=== PATIENT | female | born 1955 | race Caucasian/White ===

== ENCOUNTER 2019-05-01 14:19 | Outpatient (REF) | payer BC, SELFPAY ==
[2019-05-01 19:16] LABS: ALT 52 U/L (14-59); AST 29 U/L (15-37); Albumin 3.9 g/dL (3.4-5.0); Alkaline Phosphatase 54 U/L (46-116); Anion Gap 6.5 mmol/L (3-11); BUN 16 mg/dL (7-18); Bilirubin, Total 0.8 mg/dL (0.2-1.0); CO2 29.5 mmol/L (21.0-32.0); CREATININE 0.97 mg/dL (0.55-1.02); Calcium 9.1 mg/dL (8.5-10.1); Calculated LDL 151 mg/dL; Chloride 106 mmol/L (98-107); Cholesterol 272 mg/dL (50-200); Estimated GFR 58.38 (mL/min/1.73m2); Glucose 85 mg/dL (70-100); HDL Cholesterol 105 mg/dL (40-60); Potassium 4.8 mmol/L (3.5-5.1); Sodium 142 mmol/L (136-145); Total Protein 7.1 g/dL (6.4-8.2); Triglyceride 81 mg/dL (30-150)
== END 2019-05-01 14:39 ==
LOC: NCHCN 14:19
PROVIDERS: PCP Family Medicine; Visit Provider Family Medicine
DX: Z00.00 Encounter for general adult medical examination without abnormal findings (principal); R79.89 Other specified abnormal findings of blood chemistry
CPT/HCPCS: 80053; 80061

== ENCOUNTER 2020-03-31 14:41 | Outpatient (REF) | payer BC, SELFPAY ==
[2020-04-04 04:30] LABS: Patient Race White; SARS-CoV-2 RNA Undetected (Undetected); SARS-CoV-2 Specimen Source Nasal
== END 2020-03-31 15:01 ==
LOC: NCHCN 14:41
PROVIDERS: PCP Family Medicine; Visit Provider Family Medicine
DX: M79.18 Myalgia, other site (principal)
CPT/HCPCS: U0003

== ENCOUNTER 2020-04-07 16:26 | Outpatient (REF) | payer BC, SELFPAY ==
[2020-04-07 21:09] LABS: Abs Immature Grans 0.01 10^3/uL (0.0-0.06); Absolute Basophil Count 0.03 10^3/uL (0.0-0.2); Absolute Eosinophil Count 0.18 10^3/uL (0.0-0.7); Absolute Lymphocyte Count 1.83 10^3/uL (1.2-3.4); Absolute Neutrophil Count 3.25 10^3/uL (1.2-6.7); Basophils % 0.5; Eosinophils % 3.2; HCT 41.8 % (36.0-46.0); Immature Grans % 0.2; Lymphocytes % 32.1; MCH 31.5 pg (27.0-33.0); MCHC 33.5 % (32.0-36.0); MCV 94.1 fL (80-95); MPV 11.5 fL (8.0-11.0); Nucleated RBC 0 %; Platelet Count 217 10^3/uL (130-400); RBC 4.44 10^6/uL (3.93-5.22); RDW 12.3 % (11.7-14.6); RDW-SD 42.8 fL
[2020-04-07 21:54] LABS: Vitamin D 25 Total 43.1 ng/ml (30-100)
[2020-04-07 21:55] LABS: ALT 55 U/L (14-59); AST 34 U/L (15-37); Albumin 3.9 g/dL (3.4-5.0); Alkaline Phosphatase 53 U/L (46-116); Anion Gap 7.1 mmol/L (3-11); BUN 20 mg/dL (7-18); Bilirubin, Total 0.8 mg/dL (0.2-1.0); CO2 25.9 mmol/L (21.0-32.0); CREATININE 0.81 mg/dL (0.55-1.02); Calcium 8.7 mg/dL (8.5-10.1); Chloride 105 mmol/L (98-107); Glucose 113 mg/dL (74-106); Potassium 4.4 mmol/L (3.5-5.1); Sodium 138 mmol/L (136-145); TSH (W/Ref FT4) 1.89 uIU/mL (0.36-3.74); Vitamin B12 525 pg/mL (193-986)
[2020-04-11 10:04] LABS: Lyme Ab w Rflx to Lyme Confirm Negative (Negative)
== END 2020-04-07 16:46 ==
LOC: NCHCN 16:26
PROVIDERS: PCP Family Medicine; Visit Provider Family Medicine
DX: M54.2 Cervicalgia (principal); R53.83 Other fatigue; M25.50 Pain in unspecified joint; R79.89 Other specified abnormal findings of blood chemistry
CPT/HCPCS: 80053; 82306; 82607; 84443; 85025; 86618

== ENCOUNTER 2021-02-06 18:58 | Outpatient (REF) | payer BC, SELFPAY ==
[2021-02-06 21:16] LABS: HCT 43.7 % (36.0-46.0); HGB 14.2 g/dL (11.2-15.7); MCH 30.7 pg (27.0-33.0); MCHC 32.5 % (32.0-36.0); MCV 94.6 fL (80-95); MPV 11.5 fL (8.0-11.0); Platelet Count 204 10^3/uL (130-400); RBC 4.62 10^6/uL (3.93-5.22); RDW 13.4 % (11.7-14.6); RDW-SD 46.5 fL
[2021-02-06 21:38] LABS: Hemoglobin A1C 5.2 % (<5.7)
[2021-02-06 22:02] LABS: ALT 37 U/L (14-59); AST 27 U/L (15-37); Alkaline Phosphatase 53 U/L (46-116); Anion Gap 8.7 mmol/L (3-11); BUN 14 mg/dL (7-18); CO2 27.3 mmol/L (21.0-32.0); CREATININE 0.8 mg/dL (0.55-1.02); Calcium 8.9 mg/dL (8.5-10.1); Chloride 106 mmol/L (98-107); Glucose 90 mg/dL (74-106); Potassium 4.6 mmol/L (3.5-5.1); Sodium 142 mmol/L (136-145); TSH (W/Ref FT4) 1.07 uIU/mL (0.36-3.74); Total Protein 6.9 g/dL (6.4-8.2); Vitamin B12 444 pg/mL (193-986)
== END 2021-02-06 18:59 | disposition home or self-care (01) ==
LOC: NCHCN 18:58
PROVIDERS: PCP Family Medicine; Visit Provider Nurse Practitioner Family
DX: R20.0 Anesthesia of skin (principal); R20.2 Paresthesia of skin
CPT/HCPCS: 80053; 85027; 82607; 82746; 83036; 84443

== ENCOUNTER 2021-10-19 14:12 | Outpatient (REF) | payer BC, SELFPAY ==
--- NOTE | 2021-10-19 11:10 | PAPFT_PTH ---
PATIENT: Linda Madden LOC: [facility]#:[id number] AGE/SX: 66/F ROOM: RE10/19/[address]: Frandy Sifuentes : 1955 BED: DIS: 10/19/2021 SPEC #: [id number] RECD: 10/20/21 12:32 STATUS: [email or web address] REQ #: [id number] ELMER: 10/19/21 11:[address]: Frandy Sifuentes DEPT: [facility] Cytology RECD BY: Maria Del Carmen Abebe Tissues: 1 - CX/ENDOCX FOR PAP SMEARS Procedures: PAP THIN PREP/[facility] Screening HPV DNA PROBE Comments: [id number]
== END 2021-10-19 14:13 | disposition home or self-care (01) ==
LOC: NCHCN 14:12
PROVIDERS: PCP Family Medicine; Visit Provider Family Medicine
DX: Z12.4 Encounter for screening for malignant neoplasm of cervix (principal); Z11.51 Encounter for screening for human papillomavirus (HPV)
CPT/HCPCS: 88142; 87624

== ENCOUNTER 2022-01-12 16:53 | Outpatient (REF) | payer BC, SELFPAY ==
[2022-01-12 20:35] LABS: HCT 41.8 % (36.0-46.0); HGB 13.9 g/dL (11.2-15.7); MCH 29.9 pg (27.0-33.0); MCHC 33.3 % (32.0-36.0); MCV 90 fL (80-95); RBC 4.65 10^6/uL (3.93-5.22); RDW 13.2 % (11.7-14.6); RDW-SD 43.8 fL; WBC 2.31 10^3/uL (4.4-10.8)
[2022-01-12 21:04] LABS: Absolute Neutrophil Count 1.09 10^3/uL (1.2-6.7); Bands % 2
[2022-01-12 21:05] LABS: Absolute Basophil Count 0.02 10^3/uL (0.0-0.2); Absolute Monocyte Count 0.28 10^3/uL (0.1-0.8); Atypical Lymphocytes % 2; Metamyelocytes % 1; Platelet Count 89 10^3/uL (130-400)
[2022-01-12 21:06] LABS: Diff Comment Manual Differential; RBC Morphology Normal
[2022-01-14 14:15] LABS: COVID-19 RT-PCR UVMMC Result Negative (Negative)
== END 2022-01-12 16:54 | disposition home or self-care (01) ==
LOC: NCHCN 16:53
PROVIDERS: PCP Family Medicine; Visit Provider Registered Nurse
DX: D64.9 Anemia, unspecified (principal)
CPT/HCPCS: U0003; 85025

== ENCOUNTER 2022-11-13 18:19 | Outpatient (REF) | payer MEDICARE, SELFPAY | END 2022-11-13 18:20 | disposition home or self-care (01) | LOC: NCHCN 18:19 | PROVIDERS: PCP Family Medicine; Visit Provider Family Medicine | DX: R30.0 Dysuria (principal) | CPT/HCPCS: 87077; 87086; 87186 ==

== ENCOUNTER 2024-12-25 22:09 | Outpatient (REF) | payer MEDICARE, SELFPAY ==
[2024-12-25 21:45] LABS: ALT 46 U/L (14-59); AST 34 U/L (15-37); Albumin 4.0 g/dL (3.4-5.0); Alkaline Phosphatase 69 U/L (46-116); Anion Gap 9.1 mmol/L (3-11); BUN 17 mg/dL (7-18); Bilirubin, Total 0.9 mg/dL (0.2-1.0); CO2 25.9 mmol/L (21.0-32.0); Calcium 9.0 mg/dL (8.5-10.1); Calculated LDL 141 mg/dL (<100); Chloride 104 mmol/L (98-107); Cholesterol 275 mg/dL (<200); Estimated GFR 70.07 (mL/min/1.73m2); Glucose 95 mg/dL (74-106); HDL Cholesterol 97 mg/dL (>or=50); Potassium 4.6 mmol/L (3.5-5.1); Sodium 139 mmol/L (136-145); Total Protein 7.6 g/dL (6.4-8.2); Triglyceride 186 mg/dL (<150)
== END 2024-12-25 22:10 | disposition home or self-care (01) ==
LOC: NCHCN 22:09
PROVIDERS: PCP Family Medicine; Visit Provider Family Medicine
DX: Z00.00 Encounter for general adult medical examination without abnormal findings (principal); I10 Essential (primary) hypertension; E66.3 Overweight
CPT/HCPCS: 80053; 80061